=== PATIENT | female | born 1975 | race Caucasian/White ===

== ENCOUNTER 2024-02-05 06:42 | Day surgery (SDC) | payer MEDICAID ==
[~2024-02-05] VITALS: Ht 162.6 cm; Wt 76.2 kg
[~2024-02-05 06:42] MED LIST: ALBMDI INH; PSEU30TA36 PO
[2024-02-05] MEDS ORDERED: SIMETHICONE 40 MG/0.6 ML ML ONE (07:05)
[2024-02-05] MEDS ORDERED: MEPERIDINE 100 MG INJ. 100 MG/ML VIAL ONE (07:06)
[2024-02-05] MEDS ORDERED: MIDAZOLAM HCL 5 MG/5 ML VIAL ONE ×2 (07:06→08:55)
[2024-02-05 07:45] LABS: HCG,QUAL RESULT NEGATIVE (NEGATIVE)
[2024-02-05] MEDS ORDERED: DIPHENHYDRAMINE INJ 50 MG/ML VIAL ONE (08:55)
[2024-02-05 11:44] VITALS: O2SAT 99
[2024-02-05 13:00] VITALS: BP_SYST 124; PULSE 80; RESP 16
== END 2024-02-05 10:11 | disposition home or self-care (01) ==
LOC: SGI 06:42 → SMU 06:43 → SGI 10:11
PROVIDERS: ATTEND Internal Medicine Gastroenterology
DX: R14.0 Abdominal distension (gaseous) (principal); K21.00 Gastro-esophageal reflux disease with esophagitis, without bleeding; K29.80 Duodenitis without bleeding; K29.50 Unspecified chronic gastritis without bleeding; D12.5 Benign neoplasm of sigmoid colon; K64.8 Other hemorrhoids; K59.09 Other constipation; Z79.899 Other long term (current) drug therapy
CPT/HCPCS: 45385; 43239; 99152; 84703; 88305; 88312; 88313; 99153; G0378; J1200; J2250; J2175; 45382; 45384